=== PATIENT | female | born 1970 | race Two or more races ===

== ENCOUNTER 2017-10-16 17:05 | Emergency (ER) | payer SELFPAY ==
[2017-10-16 17:22] VITALS: BMI 36.1
[2017-10-16 18:27] LABS: BILIRUBIN,URINE NEGATIVE (NEGATIVE); BLOOD/HEMOGLOBIN,URINE 1+ (NEGATIVE); GLUCOSE, URINE NEGATIVE (NEGATIVE); KETONES,URINE NEGATIVE (NEGATIVE); LEUKOCYTE ESTERASE ,URINE NEGATIVE (NEGATIVE); NITRITES,URINE NEGATIVE (NEGATIVE); PROTEIN,URINE NEGATIVE (NEGATIVE); UROBILINOGEN,URINE NORMAL (NORMAL)
--- NOTE | 2017-10-16 18:27 | DR.EXTPAIN ---
HPI - Time seen Time seen: 18:35 - PCP Primary Care Physician: MARIA DEL CARMEN - HPI Comment HPI Comment: HISTORY BELOW. - Complaint/Symptoms Chief Complaint Doctor Comments: PAIN AND SWELLING LEFT ELBOW AND PAIN RIGHT LOWER CHEST. PATIENT HAVE NUMBNESS IN HER ARMS ESPECIALLY LEFT WHEN SHE TURN OVER ION BED. NO TRAUMA. Chief Complaint:: PT C/O LEFT ARM GOING NUMB SOMETIMES AND WHEN SHE TURNS OVER IN THE BED THAN HER RIGHT SIDE HURTS AND THAT IT HAS BEEN GOING ON FOR A WHILE BUT I HAVE ON INSURANCE,, PT DENIES ANY TRAUMA. Self Treatment fo Chief Complaint: TYLENOL AND MOTRIN / - Nurses notes reviewed Nurses Notes Review: Yes - Source History Provided: Patient - Mode of arrival Mode of Arrival: Ambulatory - Timing Onset of Chief Complaint: 08/15/17 - Context History of: Arthritis - Associated signs and symptoms Associated Signs and Symptoms: Pain, Swelling PMH - PMH Past Medical History: No Past Medical History: Asthma Past Surgical History: No - Family History History of Family Medical Conditions: No - Social History Does patient currently use any type of tobacco product: No Have you used tobacco products in the last 12 months: No Type of Tobacco Use: None Does any household member use tobacco: No Alcohol Use: None Do you use any recreational Drugs:: No Lives With: Family Lives Where: Home - infectious screening In the last 2 months have you had wt loss of >10#?: NO Have you had fever, night sweats or hemotysis?: No Have you traveled outside the country in the last 6 months?: No Isolation: Standard ROS - Review of Systems Constitutional: No Symptoms Reported Eyes: No Symptoms Reported ENTM: No Symptoms Reported Respiratoy: No Symptoms Reported Cardiovascular: No Symptoms Reported Gastrointestinal/Abdominal: No Symptoms Reported Genitourinary: No Symptoms Reported Neurological: Numbness, Paresthesia Musculoskeletal: Joint Pain, Muscle Pain, Left, Elbow Integumentary: No Symptoms Reported Hematologic/Lymphatic: No Symptoms Reported Endocrine: No Symptoms Reported All Other Systems: Reviewed and Negative PE - Vital Signs Vitals: Temperature 98.2 F Pulse Rate [Left Brachial] 64 Pulse Rate 89 Respiratory Rate 16 Blood Pressure [Left Arm] 129/72 Blood Pressure 150/90 O2 Sat by Pulse Oximetry 99 - General Limitations: No Limitations General Appearance: Alert - Head Head Exam: Normal Inspection - Eyes Eye exam: Normal Appearance - ENT ENT Exam: Normal External Ear Exam - Neck Neck Exam: Trachea Midline - Chest Chest Inspection: Symmetric Chest Wall Rise - Respiratory Respiratory Exam: Normal Lung Sounds Bilat Respiratory Exam: Bilateral Clear to Auscultation - Cardiovascular Cardiovascular Exam: Normal Rhythm, Bradycardia. negative: Tachycardia - Abdominal Exam Abdominal Exam: Normal Bowel Sounds, Soft. negative: Tenderness - Extremities Extremities Exam: Tenderness (LT ELBOW TENDER AND SWOLLEN. ROM DECREASE.) - Neurological Neurological Exam: Alert, Oriented X3 - Psychiatric Psychiatric Exam: Normal Affect, Normal Mood - Skin Skin Exam: Erythema MDM - Differential Diagnosis Differential Diagnosis: Contusion, Fracture, Sprain (ARTHRITIS) Course - Treatment Treatment: SEE ORDERS. - Education/Counseling Education/Counseling: Patient, Family, Education Educated On: Treatment, Diagnosis, Needs for Follow Up ROR - Labs Reviewed Laboratory Results Reviewed?: Yes Laboratory: Specimen Type Clean catch urine 10/16/17 18:20 Urine Color Yellow (YELLOW) 10/16/17 18:20 Urine Appearance Clear (CLEAR) 10/16/17 18:20 Urine pH 5.0 (5.0 - 8.0) 10/16/17 18:20 Ur Specific Kingsley 1.030 (1.000-1.030) 10/16/17 18:20 Urine Protein Negative (NEGATIVE) 10/16/17 18:20 Urine Glucose (UA) Negative (NEGATIVE) 10/16/17 18:20 Urine Ketones Negative (NEGATIVE) 10/16/17 18:20 Urine Occult Blood 1+ (NEGATIVE) 10/16/17 18:20 Urine Nitrite Negative (NEGATIVE) 10/16/17 18:20 Urine Bilirubin Negative (NEGATIVE) 10/16/17 18:20 Urine Urobilinogen Normal (NORMAL) 10/16/17 18:20 Ur Leukocyte Esterase Negative (NEGATIVE) 10/16/17 18:20 Urine RBC 0-2 /HPF (NEGATIVE) 10/16/17 18:20 Urine WBC 0-2 /HPF (NEGATIVE) 10/16/17 18:20 Ur Squamous Epith Cells Moderate /HPF (NEGATIVE) 10/16/17 18:20 Urine Bacteria Trace /HPF (NEGATIVE) 10/16/17 18:20 Ur Culture Indicated? No/not indicated 10/16/17 18:20 - XRAY XRAY Interpreted by: Radiologist XRAY Findings: REPORT DISCUSS WITH PATIENT AND FAMILY. - Diagnosis Discharge Problem: Tendinitis Chest pain Qualifiers: Chest pain type: intercostal pain Qualified Code(s): R07.82 - Intercostal pain - Discharge Plan Disposition: 01 HOME, SELF-CARE Condition: Stable Prescriptions: Cyclobenzaprine HCl [FLEXERIL 10 MG *] 10 mg PO TID #20 tab Meloxicam [Mobic Tab 15 mg] 15 mg PO DAILY #30 tab Tramadol HCl 50 mg PO Q8H PRN #15 tablet PRN Reason: - Follow ups/Referrals Follow ups/Referrals: [facility],None [Primary Care Provider] - 3 days - Instructions Instructions: Tendon Injury, Musculoskeletal Pain Additional Instructions: RETURN TO ED IF WORSE.
[2017-10-16] MEDS ORDERED: NORFLEX INJ IM ONE (18:29)
[2017-10-16] MEDS ORDERED: TORADOL 60 MG VIAL IM ONE (18:29)
[2017-10-16] MEDS ORDERED: TORADOL 60 MG VIAL ONE (18:39)
[2017-10-16] MEDS ORDERED: NORFLEX INJ ONE (18:39)
[2017-10-16 18:40] LABS: APPEARANCE,URINE CLEAR (CLEAR); BACTERIA,URINE TRACE /HPF (NEGATIVE); COLOR,URINE YELLOW (YELLOW); RBC,URINE 0-2 /HPF (NEGATIVE); SQUAMOUS EPITHELIAL CELL,UR MODERATE /HPF (NEGATIVE)
--- NOTE | 2017-10-16 18:54 | RAD ---
Two views of the chest Indication: Left arm going numb. Findings/conclusion: The cardiac silhouette and pulmonary vasculature within normal limits. The lungs are clear and there is no pleural effusion. The left shoulder shows no bony abnormality. Reported By:
--- NOTE | 2017-10-16 18:56 | RAD ---
Three views of the left elbow Indication: Left ongoing come is the history. Findings/conclusion: The left elbow shows no degenerative changes, acute fracture or malalignment. No joint effusion is seen. There is bony excrescence extending from the sublime tubercle which may repr esent enthesophyte from prior ulnar collateral ligament injury versus chronic stresses. Reported By:
[2017-10-16 19:46] VITALS: BP 129/72
== END 2017-10-16 19:46 | disposition home or self-care (01) ==
LOC: ER 17:28
DX: R07.82 Intercostal pain (principal); M77.9 Enthesopathy, unspecified
CPT/HCPCS: 71046; 73070; 81001; 96372; 99282; J1885; J2360